=== PATIENT | male | born 1990 | race Asian ===

== ENCOUNTER 2017-04-05 12:25 | Emergency (ER) | payer SELFPAY ==
[2017-04-05 12:51] VITALS: BP 133/50; PULSE 84; TEMP 97.9; BMI 26.6
--- NOTE | 2017-04-05 13:25 | PDOC ---
History of Present Illness - General Chief Complaint: Pain, Acute Stated Complaint: PAIN/ ABD, LOWER PELVIC (HERNIA) Time Seen by Provider: 04/05/17 13:17 History Source: Patient - History of Present Illness Initial Comments: 04/05/17 17:20 26M with no pmh presents with paraumbilical pain since last , increasing in intensity, which started suddenly while he was hitting a punching bag. 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 The pain increases with any valsalva-like maneuvers like getting up, down, BM's. No nausea, vomiting, diarrhea or fever. Past History - Past Medical History Allergies/Adverse Reactions: Allergies Allergy/AdvReac Type Severity Reaction Status Date / Time No Known Allergies Allergy Verified 04/05/17 12:47 Home Medications: Ambulatory Orders Diazepam [Valium -] 5 mg PO Q8H PRN #3 tablet 11/05/14 Naproxen [Naprosyn -] 500 mg PO BID PRN #14 tablet 11/05/14 Oxycodone HCl/Acetaminophen [Percocet 5-325 mg Tablet] 1 tab PO Q6H PRN #8 tablet 11/05/14 Oxycodone HCl/Acetaminophen [Percocet 5-325 mg Tablet] 1 tab PO Q6H PRN #8 tablet MDD 4 04/05/17 Asthma: Yes - Immunization History Immunization Up to Date: Yes - Psycho/Social/Smoking Cessation Hx Anxiety: No Suicidal Ideation: No Smoking Status: Yes Smoking History: Current every day smoker Have you smoked in the past 12 months: Yes Number of Cigarettes Smoked Daily: 5 Information on smoking cessation initiated: Yes Hx Alcohol Use: Yes Drug/Substance Use Hx: No Substance Use Type: Alcohol Hx Substance Use Treatment: No Review of Systems - Review of Systems Constitutional: No: Symptoms Reported HEENTM: No: Symptoms Reported Respiratory: No: Symptoms reported Cardiac (ROS): No: Symptoms Reported ABD/GI: Yes: Symptoms Reported, See HPI. No: Nausea, Rectal Bleeding, Vomiting , Indigestion : No: Symptoms Reported Musculoskeletal: No: Symptoms Reported Integumentary: No: Symptoms Reported Neurological: No: Symptoms reported *Physical Exam - Vital Signs Last Vital Signs Temp Pulse Resp BP Pulse Ox 97.9 F 84 19 133/50 97 04/05/17 12:47 04/05/17 12:47 04/05/17 12:47 04/05/17 12:47 04/05/17 12:47 - Physical Exam General Appearance: Yes: Nourished, Appropriately Dressed. No: Apparent Distress HEENT: positive: EOMI, STEPHANIE, Normal ENT Inspection Neck: negative: Tender Respiratory/Chest: positive: Lungs Clear, Normal Breath Sounds. negative: Chest Tender, Respiratory Distress Cardiovascular: positive: Regular Rhythm, Regular Rate, S1, S2 Gastrointestinal/Abdominal: positive: Normal Bowel Sounds, Tender ( Paraumbilical tenderness ), Soft, Tenderness. negative: Decreased BS ED Treatment Course - LABORATORY CBC & Chemistry Diagram: 04/05/17 13:33 04/05/17 13:33 Medical Decision Making - Medical Decision Making 04/05/17 17:27 26 with paraumbilical tenderness with valsalva-like maneuvers since . CT abdomen to r/o abdominal hernia shows periumbilical stranding with a 2cm small fluid collection and infiltration of the fat. Talked to dr Stephenson who recommended sending patient home with painkiller/ice and schedule elective repair outpatient. Patient counseled on options, will set up surgery with Dr. Stephenson. 04/05/17 17:30 04/05/17 17:36 *DC/Admit/Observation/Transfer Diagnosis at time of Disposition: Epigastric hernia - Discharge Dispostion Disposition: HOME Condition at time of disposition: Improved Admit: No - Prescriptions Prescriptions: Oxycodone HCl/Acetaminophen [Percocet 5-325 mg Tablet] 1 tab PO Q6H PRN #8 tablet MDD 4 PRN Reason: Severe Pain - Referrals Referrals: Homero Stephenson MD [Staff Physician] - - Patient Instructions Printed Discharge Instructions: Abdominal Hernia, Hernia Repair
--- NOTE | 2017-04-05 13:32 | PDOC ---
Attending Attestation - Resident Resident Name: Chris Ricks - ED Attending Attestation I have performed the following: I have examined & evaluated the patient, The case was reviewed & discussed with the resident, I agree w/resident's findings & plan, Exceptions are as noted - HPI HPI: 26 yo M no prior medical history presents with periumbilical abdominal pain x5 days. He denies any direct trauma, but states that the pain started suddenly while he was hitting a punching bag. He states that he boxes frequently and exercises frequently. He lifts heavy objects for work. He states that his pain worsens when he bears down, standing up, lifting things. Denies N/V/D, fever. There is a tender area on his abdomen, but no masses or protrusions. - Physicial Exam PE: GENERAL: Awake, alert, and fully oriented. Appears uncomfortable. HEAD: No signs of trauma EYES: PERRLA, EOMI, sclera anicteric, conjunctiva clear ENT: Auricles normal inspection, hearing grossly normal, nares patent, oropharynx clear without exudates. Moist mucosa NECK: Normal ROM, supple, no lymphadenopathy, JVD, or masses LUNGS: Breath sounds equal, clear to auscultation bilaterally. No wheezes, and no crackles HEART: Regular rate and rhythm, normal S1 and S2, no murmurs, rubs or gallops ABDOMEN: Soft, +exquisite periumbilical tenderness, normoactive bowel sounds. No guarding, no rebound. No masses EXTREMITIES: Normal range of motion, no edema. No clubbing or cyanosis. No cords, erythema, or tenderness NEUROLOGICAL: Cranial nerves II through XII grossly intact. Normal speech, normal gait SKIN: Warm, Dry, normal turgor, no rashes or lesions noted. - Medical Decision Making CT results discussed with Dr. Stephenson, no emergent intervention at this time, may follow up as outpatient.
[2017-04-05 13:43] LABS: BASOPHIL 0.8 % (0-2.0); EOSINOPHIL 3.2 % (0-4.5); MCH 30.7 pg (25.7-33.7); MCHC 33.4 g/dl (32.0-35.9); MEAN CELL VOLUME 91.9 fl (80-96); MEAN PLT VOLUME 9.1 fl (7.5-11.1); NEUTROPHILS 67.1 % (42.8-82.8); PLATELET COUNT 190 K/MM3 (134-434); RDW 14.7 % (11.9-15.9); WHITE BLOOD COUNT 6.7 K/mm3 (4.0-10.0)
[2017-04-05 13:52] LABS: URINE APPEARANCE CLEAR; URINE BILIRUBIN NEGATIVE (NEGATIVE); URINE BLOOD NEGATIVE (NEGATIVE); URINE COLOR YELLOW; URINE GLUCOSE (UA) NEGATIVE (NEGATIVE); URINE KETONE NEGATIVE (NEGATIVE); URINE LEUK ESTERASE NEGATIVE (NEGATIVE); URINE NITRITE NEGATIVE (NEGATIVE); URINE PROTEIN NEGATIVE (NEGATIVE); URINE UROBILINOGEN NEGATIVE mg/dL (0.2-1.0)
[2017-04-05 14:16] LABS: ALBUMIN 3.6 g/dl (3.4-5.0); ANION GAP 5 (8-16); BILIRUBIN,TOTAL 0.4 mg/dL (0.2-1.0); CALCIUM 9.2 mg/dL (8.5-10.1); CO2 29 mmol/L (21-32); GLUCOSE,RANDOM 99 mg/dL (74-106); SGOT/AST 27 U/L (15-37); SGPT/ALT 26 U/L (12-78); TOT PROT 7.1 g/dl (6.4-8.2)
[2017-04-05 14:18] LABS: ALK PHOS 56 U/L (45-117)
[2017-04-05] MEDS ORDERED: OXYCODONE/APAP 5/325MG COMBO TABLET PO ONE (17:19)
[2017-04-05] MEDS ORDERED: OXYCODONE/APAP 5/325MG COMBO TABLET ONE (17:31)
== END 2017-04-05 18:11 | disposition home or self-care (01) ==
LOC: JER 12:25
PROC: 3E023NZ Introduction of Analgesics, Hypnotics, Sedatives into Muscle, Percutaneous Approach (ICD-10-PCS; principal; 2017-04-05)
DX: L02.211 Cutaneous abscess of abdominal wall (principal)
CPT/HCPCS: 36415; 74176-TC; 76705; 80053; 81003; 83605; 85025; 99283-25

== ENCOUNTER 2017-04-06 01:20 | Emergency (ER) | payer SELFPAY ==
[2017-04-06 02:17] VITALS: BP 149/83; PULSE 77; TEMP 98.2; BMI 26.6
--- NOTE | 2017-04-06 02:35 | PDOC ---
History of Present Illness - General Chief Complaint: Pain Stated Complaint: ABD PAIN Time Seen by Provider: 04/06/17 02:12 History Source: Patient Exam Limitations: No Limitations - History of Present Illness Travel History: No Initial Comments: 04/06/17 02:29 This is a 26 yo man with PMH asthma presents with increased pain to periumbilical area. He was seen and evaluated in this ER for same on 04/05. He states he was punching a heavy bag on 04/01 when he felt pain immediately superior to umbilicus. The pain has progressed since that day. He states the pain worsens with bearing down. CT scan earlier today showed 2cm periumbilical collection paraumbilical and infiltration of the fat and thickening of the skin suggesting underlying infection/necrosis. Pain unrelieved with Percocet he was prescribed. Timing/Duration: reports: constant, getting worse Quality: reports: severe Abdominal Pain Onset Location: reports: periumbilical Pain Radiation: reports: RLQ Activities at Onset: reports: other (punching heavy bag) Aggravating Factors: improves with: Defecation Alleviating Factors: improves with: None Past History - Travel Traveled outside of the country in the last 30 days: No Close contact w/someone who was outside of country & ill: No - Past Medical History Allergies/Adverse Reactions: Allergies Allergy/AdvReac Type Severity Reaction Status Date / Time No Known Allergies Allergy Verified 04/06/17 02:17 Home Medications: Ambulatory Orders Oxycodone HCl/Acetaminophen [Percocet 5-325 mg Tablet] 1 tab PO Q6H #8 tablet MDD 4 04/05/17 Cephalexin Monohydrate [Keflex -] 500 mg PO Q6H #40 capsule 04/06/17 Asthma: Yes - Immunization History Immunization Up to Date: Yes - Psycho/Social/Smoking Cessation Hx Anxiety: No Suicidal Ideation: No Smoking Status: Yes Smoking History: Current every day smoker Have you smoked in the past 12 months: Yes Number of Cigarettes Smoked Daily: 5 Information on smoking cessation initiated: No Hx Alcohol Use: Yes (Ocassional) Drug/Substance Use Hx: No Substance Use Type: Alcohol Hx Substance Use Treatment: No Review of Systems - Review of Systems Able to Perform ROS?: Yes Is the patient limited Slovak proficient: No Constitutional: No: Symptoms Reported HEENTM: No: Symptoms Reported Respiratory: No: Symptoms reported Cardiac (ROS): No: Symptoms Reported ABD/GI: Yes: Other (periumbilical pain) : No: Symptoms Reported Musculoskeletal: No: Symptoms Reported Integumentary: No: Symptoms Reported Neurological: No: Symptoms reported *Physical Exam - Vital Signs Last Vital Signs Temp Pulse Resp BP Pulse Ox 98.2 F 77 18 149/83 100 04/06/17 02:00 04/06/17 02:00 04/06/17 02:00 04/06/17 02:00 04/06/17 02:00 - Physical Exam General Appearance: Yes: Appropriately Dressed. No: Apparent Distress HEENT: positive: EOMI, STEPHANIE, Normal ENT Inspection, Normal Voice Neck: positive: Trachea midline, Supple Respiratory/Chest: positive: Lungs Clear, Normal Breath Sounds. negative: Chest Tender, Respiratory Distress, Accessory Muscle Use Cardiovascular: positive: Regular Rhythm, Regular Rate, S1, S2. negative: Edema , Murmur Gastrointestinal/Abdominal: positive: Normal Bowel Sounds, Tender (tender to light palpation over umbilicus and RLQ), Soft Extremity: positive: Normal Capillary Refill, Normal Inspection, Normal Range of Motion. 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 He was seen and evaluated in this ER for same on 04/05. He states he was punching a heavy bag on 04/01 when he felt pain immediately superior to umbilicus. The pain has progressed since that day. He states the pain worsens with bearing down. CT scan earlier today showed 2cm periumbilical collection paraumbilical and infiltration of the fat and thickening of the skin suggesting underlying infection/necrosis. Pain unrelieved with Percocet he was prescribed. Erythema present at umbilicus. DDx: Abscess vs hernia - insert PIV - morphine 2mg im now - reassess 04/06/17 04:01 - keflex 500 po now - keflex 500 qid x10 days *DC/Admit/Observation/Transfer Diagnosis at time of Disposition: Abscess of abdominal wall - Discharge Dispostion Disposition: HOME Condition at time of disposition: Fair Admit: No - Prescriptions Prescriptions: Cephalexin Monohydrate [Keflex -] 500 mg PO Q6H #40 capsule - Patient Instructions Printed Discharge Instructions: DI for Skin Abscess Additional Instructions: Follow up with surgery and your doctor as previously instructed. Take Keflex 500mg 4x every day until all medication is completed. Return to ER for increased pain, fevers, inability to eat or any other concerns.
[2017-04-06] MEDS ORDERED: morphine CARPU-JECT 2 MG/1 ML DISP.SYRIN IM ONE (02:46)
[2017-04-06] MEDS ORDERED: morphine CARPU-JECT 4 MG/1 ML DISP.SYRIN ONE (03:10)
[2017-04-06] MEDS ORDERED: CEFUROXIME AXETIL 500 MG TABLET PO ONE (03:58)
[2017-04-06] MEDS ORDERED: CEPHALEXIN MONOHYDRATE 500 MG CAPSULE (UD) PO ONE (04:00)
[2017-04-06] MEDS ORDERED: CEPHALEXIN MONOHYDRATE 250 MG CAPSULE (FP) ONE (04:01)
== END 2017-04-06 04:21 | disposition home or self-care (01) ==
LOC: JER 01:20 → SUPCPDRO 01:20 → JER 04:21
DX: L02.211 Cutaneous abscess of abdominal wall (principal); W22.8XXA Striking against or struck by other objects, initial encounter; X50.0XXA Overexertion from strenuous movement or load, initial encounter; X50.9XXA Other and unspecified overexertion or strenuous movements or postures, initial encounter; Y93.89 Activity, other specified
CPT/HCPCS: 99282-25